=== PATIENT | female | born 1945 | race Hispanic/Latino ===

== ENCOUNTER 2016-09-14 09:52 | Outpatient (CLI) | payer BC, MEDICARE ==
--- NOTE | 2016-09-14 11:12 | Ultrasound Report ---
RIGHT UPPER QUADRANT ULTRASOUND: HISTORY: Abdominal pain. Technique: Transabdominal ultrasound imaging with Doppler interrogation. FINDINGS: The gallbladder is sonolucent with no evidence of stones, polyps or wall thickening. The common bile duct measures 3 mm. Images of the liver parenchyma, pancreas, right kidney and aorta are within normal limits. No perihepatic ascites. IMPRESSION: Unremarkable right upper quadrant ultrasound.
== END 2016-09-14 09:53 | disposition home or self-care (01) ==
LOC: US 09:52
DX: R10.11 Right upper quadrant pain (principal); T50.901A Poisoning by unspecified drugs, medicaments and biological substances, accidental (unintentional), initial encounter
CPT/HCPCS: 76705

== ENCOUNTER 2017-01-28 07:54 | Day surgery (SDC) | payer MEDICARE ==
[~2017-01-28 07:54] MED LIST: TETRACAINE 0.5% OD PRN
[2017-01-28] MEDS: VIGAMOX OD SCH ×3 (09:45→09:55)
[2017-01-28] MEDS: MYDRIACYL OD SCH ×3 (09:45→09:55)
[2017-01-28] MEDS: AK-Dilate OD SCH ×3 (09:45→09:55)
--- NOTE | 2017-01-28 09:54 | Anesthesia Consultation ---
Anesthesia Consult and Med Hx Date of service: 01/28/17 - Airway Anesthetic Teeth Evaluation: Good ROM Head & Neck: Adequate Mental/Hyoid Distance: Adequate Mallampati Class: Class III Intubation Access Assessment: Possibly Difficult - Pulmonary Exam CTA: Yes - Cardiac Exam Cardiac Exam: RRR - Pre-Operative Health Status Proposed Anesthetic Plan: MAC - Pulmonary Hx Smoking: No Hx Respiratory Symptoms: Yes (chronic cough for years) - Cardiovascular System Hx Hypertension: Yes - Central Nervous System Hx Back Pain: Yes Hx Psychiatric Problems: Yes (depression) - Other Systems Hx Cancer: No
--- NOTE | 2017-01-28 09:54 | Anesthesia Day of Surgery ---
Anesthesia Day of Surgery - Day of Surgery Patient Examined: Yes Patient H&P Reviewed: Yes Patient is NPO: Yes
[2017-01-28] MEDS ORDERED: SUBLIMAZE ONE (10:18)
[2017-01-28] MEDS ORDERED: VERSED ONE (10:18)
--- NOTE | 2017-01-28 10:51 | Post Anesthesia Evaluation ---
- Post Anesthesia Evaluation Patient Participated: Yes Airway Patent: Yes Stable Respiratory Function: Yes Temp > 96.8F: Yes Pain Manageable: Yes Adequeate Hydration: Yes Anesthesia Complications: No
[2017-01-28] MEDS ORDERED: PRED FORTE 1% OD SCH (10:55)
[2017-01-28 11:04] VITALS: BP 140/66
--- NOTE | 2017-01-28 11:04 | Operative Report ---
Operative Report Operative Report: PATIENT'S NAME: DATE OF : DATE OF SURGERY: 01/28/2017 PREOPERATIVE DIAGNOSIS: Cataract and Astigmatism right Eye POSTOPERATIVE DIAGNOSIS: Same OPERATIVE PROCEDURE: Phacoemulsification with intraocular lens implantation, right eye Toric SURGEON: Annette Bethea M.D. LENS: [id number] 18.5 AT 30 ANESTHESIA: Monitored anesthesia care in combination with topical and intracameral anesthesia because of the established specific risk of reflux, arrhythmias, or anxiety attacks associated with ocular manipulation, as well as the difficulty of the supervisor pre wave to manage such potentially catastrophic events while simultaneously attempting to complete the surgical procedure and was deemed necessary for the patient's safety to have a Nurse Textile Supervisor present during the procedure whenever possible. A Nurse Textile Supervisor was utilized to regulate the intravenous sedation of the patient so the patient was cooperative yet not asleep in order for the patient to successfully maintain fixation of the eye on the operating light of the microscope. COMPLICATIONS: No surgical complications. No blood loss. ALLERGIES: Aspirin morphine PROGNOSIS: Excellent INDICATIONS FOR SURGERY: The patient is undergoing surgery in the hopes of eliminating or improving these visual difficulties. PROCEDURE: After arriving at the surgery center, the patient was given topical anesthetic and dilating drops, as noted in the record. The patient was then taken into the operating room and given more anesthetic drops. The eyelids , lashes, and lid margins were scrubbed with Betadine solution, and the patient was draped. The Nurse Textile Supervisor administered IV sedation and monitored the patient during the procedure. A speculum was placed between the eyelids, and the patient was asked to fixate on the light of the microscope. The patient has been noted to have pre-existing astigmatism as well as a concern to be left with as little astigmatism as possible after surgery in order to improve their uncorrected visual acuity after surgery.~ They have, therefore, elected to have our option for astigmatism management and have signed a waiver acknowledging their understanding of the process, its benefits and risks, and wish to proceed with this option. Based on the preoperative evaluation of the topography of their corneal mapping of astigmatism, the wound orientation, wound size, and use of a relaxing incision have been utilized to minimize their post operative astigmatism. In some cases a toric, or astigmatic , intraocular lens implant may be used in conjunction with a relaxing incision or in place of one. When an astigmatic lens is used, preoperative evaluation of the topography with careful planning of the lens position and power of the astigmatic correction by lens are all done. ~The calculation of the lens power for the astigmatic correction and the lens orientation of the astigmatic lens is performed separately and subsequently from the normal lens power calculation for the standard cataract lens power needed for standard surgery without astigmatism management. ~In fact, the toric lens power calculation can not be done until the standard lens power calculations are performed and finished - so that is a totally separate part of the preoperative planning. The eye was then fixated with a round wen, which would damage the conjunctival tissues or vessel, and a stab incision was made in the peripheral clear cornea into the anterior chamber. Viscoelastic was next used to fill the anterior chamber. The eye was once again fixated with the round wen and a keratome was used make an incision in clear cornea peripherally on my right hand side temporally. Hydrodissection was carried out utilizing a U-shaped cannula and balanced salt solution to delineate the cortical material from the capsule and the nucleus from the cortical material. The phaco tip was introduced into the eye and used to remove the anterior cortical material in the area of the capsulotomy. Then the phaco tip was buried into the nucleus, and a chopping instrument was introduced into the eye and used to provide countertraction in the nucleus between this instrument and the phaco tip fracturing the nucleus. This procedure was repeated multiple times, providing multiple small segments of the lens, and then the phaco tip was used to remove each of these segments. An I/A tip was then used to remove the remaining cortex. An one-piece, acrylic intraocular lens was then placed into an inserting cartridge. The tip of the inserting cartridge was introduced into the keratome incision and into the anterior chamber. The implant was gently advanced through the cartridge and into the eye, where it unfolded, and both haptics were placed in the capsular bag, where it centered nicely and appeared to be well fixated. Prior to prepping the patient, the patient was asked to sit up on the operative bed and look across the room. ~Utilizing a special marking instrument, the cardinal meridians at 3:00, 6:00, and 9:00 were marked with Gentian tristan.~ These pringle were used later in the surgery as reference pringle to identify the proper location of the axis for the placement of the astigmatic, or toric, intraocular lens.~ The axis was marked with Gentian tristan prior to entering the eye.~ After placement of the intraocular lens implant and removal of the viscoelastic from both the capsular bag and anterior chamber, the lens was positioned so it was perfectly aligned along this axis. The orientation was rechecked once the wounds were hydrated and the integrity of the wounds was verified. After placement of the intraocular lens, the I~and~A handpiece was placed back into the eye and used to remove the viscoelastic, including viscoelastic that was behind the optic of the intraocular lens. The anterior chamber was then filled with balanced salt solution, and hydration of the wound was used to cause swelling of the wound and more appropriate watertight closure. When the wound was found to be firm, the patient was asked to comment on how bright the light was. If there was no light perception at all or if the light was substantially dimmer than during the rest of the surgery, the amount of fluid in the eye was decompressed to lower the intraocular pressure until the patient could see the bright light again. This was done to avoid any damage or decreased blood flow to the optic nerve. MEDICATIONS APPLIED AT END OF SURGERY: One drop vigamox and Pred Forte The patient was given a shield to wear at night and was instructed not to rub or push on the eye. DISCHARGE SUMMARY: The patient was released in stable condition. The patient and those with the patient were given a written sheet of postoperative instructions and counseling on any abnormal laboratory studies. The patient is to see us tomorrow for follow-up in the office and is to call immediately for any difficulties. Annette Bethea M.D. Date
--- NOTE | 2017-01-28 11:05 | Short Stay Summary ---
Short Stay Documentation Date of service: 01/28/17 - History H&P: obtained from office - Allergies and Medications Current Medications: Allergies aspirin Allergy (Verified 01/27/17 09:58) Unknown morphine Allergy (Verified 01/27/17 09:58) Unknown Home Medications Medication Instructions Recorded Confirmed Last Taken Type ALPRAZolam [Alprazolam] 1 mg PO BID 01/27/17 01/27/17 01/27/17 History Amitriptyline [Elavil] 25 mg PO QHS 01/27/17 01/27/17 01/27/17 History Baclofen 10 mg PO BID 01/27/17 01/27/17 01/27/17 History Escitalopram [Lexapro] 10 mg PO DAILY 01/27/17 01/27/17 01/27/17 History Oxycodone HCl [Oxycontin] 10 mg PO Q12H 01/27/17 01/27/17 01/28/17 06:15 History Valsartan/Hydrochlorothiazide 1 tab PO DAILY 01/27/17 01/27/17 01/28/17 06:15 History Active Medications Moxifloxacin HCl (Vigamox) 1 drops OD Q5MIN OSMEL Stop: 01/30/17 06:01 Last Admin: 01/28/17 09:55 Dose: 1 drops Phenylephrine HCl (Ak-Dilate) 1 drops OD Q5MIN OSMEL Stop: 01/30/17 06:01 Last Admin: 01/28/17 09:55 Dose: 1 drops Prednisolone Acetate (Pred Forte 1%) 1 drops OD ONCE OSMEL Stop: 01/28/17 23:59 Tetracaine HCl (Tetracaine 0.5%) 1 drops OD Q5M PRN PRN Reason: Analgesia Last Admin: 01/28/17 09:45 Dose: 1 drops Tropicamide (Mydriacyl) 1 drops OD Q5MIN OSMEL Stop: 01/30/17 06:01 Last Admin: 01/28/17 09:55 Dose: 1 drops - Brief post op/procedure progress note Date of procedure: 01/28/17 Pre-op diagnosis: cataract and astigmatism right eye Post-op diagnosis: same Procedure: Phacoemulsification with toric lens insertion RIGHT eye Anesthesia: MAC Surgeon: MONCHO MARVIN Estimated blood loss: none Pathology: none Condition: stable - Disposition Condition at discharge: Good Disposition: DC-01 TO HOME OR SELFCARE - Discharge Diagnoses (1) Cataract Status: Acute Qualifiers: Cataract type: age-related Age-related cataract type: nuclear Infantile/ juvenile cataract type: I Traumatic cataract type: T Complicated cataract type: C Secondary cataract type: S Laterality: right Qualified Code(s): H25.11 - Age-related nuclear cataract, right eye (2) Astigmatism of right eye Status: Resolved Qualifiers: Astigmatism type: regular Qualified Code(s): H52.221 - Regular astigmatism , right eye Short Stay Discharge Plan Additional Instructions: DR. MARVIN'S POST OP INSTRUCTIONS GIVEN. Follow up with: OLVIN OSBORNE MD, PHD [Primary Care Provider] - 7 Days Forms: [facility]
== END 2017-01-28 11:35 | disposition home or self-care (01) ==
LOC: OR 07:54
DX: H25.11 Age-related nuclear cataract, right eye (principal); H52.201 Unspecified astigmatism, right eye; M19.90 Unspecified osteoarthritis, unspecified site; I10 Essential (primary) hypertension; F32.9 Major depressive disorder, single episode, unspecified; Z86.73 Personal history of transient ischemic attack (TIA), and cerebral infarction without residual deficits; Z88.6 Allergy status to analgesic agent
CPT/HCPCS: 66984; J2250; J3010; V2630

== ENCOUNTER 2019-03-07 08:57 | Outpatient (CLI) | payer MEDICARE ==
--- NOTE | 2019-03-08 09:37 | Mammography Report ---
BONE DEXA. History: M81.0 OSTEOPOROSIS Procedure: 3 site bone densitometry performed on a Hologic scanner. Comparison: None Findings: The BMD of the lumbar spine (L2-L4) is 1.018 gm/cm2 with a T-score of -0.6 and a Z-score of +2.0 . S tatus post L1 compression fracture with kyphoplasty and fusion hardware at the L5-S1 level. The BMD of the total left hip is 0.769 gm/cm2 with a T-score of -1.4 and a Z-score of +0.4 The left femoral neck BMD is 0.712 gm/cm2 with a T score of -1.2 and a Z score of +0.9. The BMD of the total right hip is 0.799 gm/cm2 with a T-score of -1.2 and a Z-score of +0.6. The right femoral neck BMD is 0.639 gm/cm2 with a T score of -1.9 and a Z score of +0.2 IMPRESSION: 1. WHO Classification: Normal with average fracture risk based on lumbar spine measurements. 2. WHO classification: Osteopenia with increased fracture risk based on both hip measurements. 3. The FRAX 10 year fracture probability for a major osteoporotic fracture is 12.0%. 4. The FRAX 10 year fracture probability for hip fracture is 2.7%. Note:FRAX version 3.01. Fracture probability calculated for an untreated patient. Fracture probabilit y may be lower if the patient has received treatment. RECOMMENDATION: Clinical correlation and routine screening. Definitions: BMD = Bone Mineral Density T score = BMD related to mean peak bone mass of young adult (Mathew expressed an standard deviation) Z score = Age-matched BMD expressed in SD World health organization (WHO) diagnostic criteria: Normal: T score greater than -1 SD. Osteopenia: T score between - SD and -2.4 SD. Osteoporosis: T score -2.5 SD or below Note: BMD is not the only risk factor for fracture; also consider factors such as the patient's age, risk of falling, previous osteoporotic fracture, family history of osteoporotic fractures, smoking st atus and low body weight. All treatment decisions require clinical judgment and consideration of individual patient factors inc luding patient preferences, comorbidities, previous drug use and risk factors not captured in the FRA X model (e.g. Frailty, falls, vitamin D deficiency, increased bone turnover, interval significant dec line in BMD). A more detailed DEXA Bone Densitometry report is available upon request. Signer Name: Karan Cabrera MD Signed: 03/08/2019 9:33 AM Workstation Name: [id number]
== END 2019-03-07 08:58 | disposition home or self-care (01) ==
LOC: MAMMO 08:57
PROVIDERS: ATTEND Urology
DX: M81.0 Age-related osteoporosis without current pathological fracture (principal)
CPT/HCPCS: 77080